=== PATIENT | male | born 1980 | race Caucasian/White ===

== ENCOUNTER 2018-02-15 13:04 | Emergency (ER) | payer MEDICAID ==
[~2018-02-15] VITALS: Ht 170.2 cm; Wt 97.7 kg
[2018-02-15 13:22] VITALS: BP 137/94; Ht 170.2 cm; Wt 97.7 kg
== END 2018-02-15 15:08 | disposition home or self-care (01) ==
LOC: ED 13:04
DX: L03.114 Cellulitis of left upper limb (principal); L03.113 Cellulitis of right upper limb

== ENCOUNTER 2018-02-24 01:24 | Emergency (ER) | payer MEDICAID ==
[~2018-02-24] VITALS: Ht 170.2 cm; Wt 95.7 kg
[2018-02-24 03:27] LABS: CALCIUM 9.2 mg/dL (8.5-10.1); CARBON DIOXIDE 25.4 mmol/L (21-32); CHLORIDE SERUM 101 mmol/L (98-107); CREATININE SERUM 1.1 mg/dL (0.7-1.3); GFR1 > 60 mL/min; GLUCOSE SERUM 92 mg/dL (74-106); POTASSIUM SERUM 3.5 mmol/L (3.5-5.1); SODIUM SERUM 140 mmol/L (136-145)
[2018-02-24 04:07] LABS: BASOPHIL % 0.9 % (0-2); PLATELET COUNT 349 x10^3mcL (130-400); RED CELL DISTRIBUTION WIDTH 13.4 % (11.5-14.5)
[2018-02-24 05:00] VITALS: BP 142/98
== END 2018-02-24 05:00 | disposition home or self-care (01) ==
LOC: ED 01:24
PROVIDERS: Emergency Medicine
DX: R21 Rash and other nonspecific skin eruption (principal); R50.9 Fever, unspecified; R53.81 Other malaise
CPT/HCPCS: J7030